=== PATIENT | male | born 1995 | race Caucasian/White ===

== ENCOUNTER 2018-06-11 08:28 | Emergency (ER) | payer BC, OTHER ==
[~2018-06-11] VITALS: Ht 182.9 cm; Wt 90.8 kg
[2018-06-11] MEDS ORDERED: SODIUM CHLORIDE FLUSH 10ML SYR IVF ONE (09:00)
[2018-06-11] MEDS ORDERED: FAMOTIDINE 20 MG/2 ML IVP ONE (09:00)
[2018-06-11] MEDS ORDERED: ONDANSETRON 2MG/ML, 2ML IVPush ONE (09:00)
[2018-06-11] MEDS ORDERED: ONDANSETRON 2MG/ML, 2ML ONE (09:09)
[2018-06-11] MEDS ORDERED: FAMOTIDINE 20 MG/2 ML ONE (09:10)
[2018-06-11 09:14] LABS: MEAN CORPUSCULAR HEMOGLOBIN 30.2 pg (27.5-34.5); MEAN CORPUSCULAR HGB CONC 33.5 g/dL (33.2-36.2); MEAN CORPUSCULAR VOLUME 90.2 fL (81-97); MEAN PLATELET VOLUME 6.9 fL (7.4-10.4); PLATELET COUNT 312 x10^3/uL (130-400); RED BLOOD COUNT 6.56 x10^6/uL (4.38-5.82); RED CELL DISTRIBUTION WIDTH 12.4 % (9.4-14.8)
--- NOTE | 2018-06-11 09:19 | NUR ---
PT PRESENTS FOR NVD SINCE 0200 THIS AM. MULTIPLE TRIPS TO BR. ABD GENRALLY TENDER.
[2018-06-11 09:36] LABS: ALANINE AMINOTRANSFERASE 37 U/L (12-78); ALBUMIN 5.4 g/dL (3.4-5.0); ANION GAP 6 mmol/L (5-15); CALCIUM 11.2 mg/dL (8.5-10.1); CHLORIDE 105 mmol/L (98-107); CREATININE 1.68 mg/dL (0.7-1.3)
[2018-06-11 09:38] LABS: ALKALINE PHOSPHATASE 64 U/L (45-117); BILIRUBIN,TOTAL 1.7 mg/dL (0.2-1.0); TOTAL PROTEIN 9.6 g/dL (6.4-8.2)
[2018-06-11 09:55] LABS: CLOSTRIDIUM DIFFICILE ANTIGEN NEGATIVE; CLOSTRIDIUM DIFFICILE TOXIN NEGATIVE (Negative)
[2018-06-11] MEDS ORDERED: MAALOX/HYOSCYAMINE/LIDOCAINE 45 ML BTL ONE (09:58)
[2018-06-11] MEDS ORDERED: METOCLOPRAMIDE 5 MG/ML, 2ML ONE (09:58)
[2018-06-11] MEDS ORDERED: MAALOX/HYOSCYAMINE/LIDOCAINE 45 ML BTL PO ONE (10:00)
[2018-06-11] MEDS ORDERED: METOCLOPRAMIDE 5 MG/ML, 2ML IVPush ONE (10:00)
[2018-06-11 10:02] LABS: BANDS%(MANUAL) 9 % (0-7); MD YES; SEG#(MANUAL) 13.99 x10^3/uL (1.8-6.8); SEGS% (MANUAL) 74 % (42-75)
[2018-06-11 10:03] LABS: <PLATELET ESTIMATE> ADEQUATE; <PLT MORPHOLOGY> NORMAL PLT MORPH; <RBC MORPHOLOGY> NORMAL; BASOS#(MANUAL) 0.19 x10^3/uL (0-0.1); BASOS% (MANUAL) 1 % (0-1); EOS#(MANUAL) 0.57 x10^3/uL (0.0-0.4); EOS% (MANUAL) 3 % (1-7); LYMPH#(MANUAL) 1.13 x10^3/uL (1-3.4); LYMPHS% (MANUAL) 6 % (22-44); MONOS#(MANUAL) 1.32 x10^3/uL (0.3-2.7); MONOS% (MANUAL) 7 % (2-9)
[2018-06-11 10:04] LABS: PMNS WITH VACUOLES 1+
[2018-06-11] MEDS ORDERED: SODIUM CHLORIDE 0.9% 1,000ML IVBOLUS ONE (10:30)
[2018-06-11 11:06] VITALS: BP 114/63
--- NOTE | 2018-06-11 11:07 | NUR ---
Pt feels better. >1 hour with no diarrhea or vomiting.. remains mildly trachy Addendum: 06/11/18 at 1108 by [facility] Pt feels better. >1 hour with no diarrhea or vomiting. remains mildly tachy
[2018-06-11] MEDS ORDERED: AZITHROMYCIN 500 MG TABLET ONE (11:26)
[2018-06-11] MEDS ORDERED: AZITHROMYCIN 500 MG TABLET PO ONE (11:30)
[2018-06-11 13:09] LABS: CRYPTOSPORIDIUM ANTIGEN Negative (Negative)
== END 2018-06-11 11:40 | disposition home or self-care (01) ==
LOC: ED 09:31
DX: K52.9 Noninfective gastroenteritis and colitis, unspecified (principal); E86.9 Volume depletion, unspecified
CPT/HCPCS: 36415; 80053; 83690; 85025; 87046; 87324; 87328; 87329; 87427; 89055; 96361; 96374; 96375; 99283; J2405; J2765; J3490; J7030

== ENCOUNTER 2021-01-21 16:13 | Emergency (ER) | payer BC, OTHER ==
[~2021-01-21] VITALS: Ht 188 cm; Wt 90.9 kg
[2021-01-21 16:15] VITALS: BP 108/73
--- NOTE | 2021-01-21 20:22 | NUR ---
NA X 1 WHEN [place] FOR ROOM
--- NOTE | 2021-01-21 20:39 | NUR ---
NA X 2 WHEN CALLED FOR ROOM
--- NOTE | 2021-01-21 21:14 | NUR ---
NA X 3
== END 2021-01-21 21:15 | disposition left against medical advice (07) ==
LOC: ED 16:30
DX: R11.2 Nausea with vomiting, unspecified (principal); Z53.21 Procedure and treatment not carried out due to patient leaving prior to being seen by health care provider